=== PATIENT | female | born 1990 | race Caucasian/White ===

== ENCOUNTER 2018-12-08 10:49 | Emergency (ER) | payer SELFPAY ==
[~2018-12-08] VITALS: Ht 149.9 cm; Wt 63.6 kg
[2018-12-08 10:56] VITALS: Ht 149.9 cm; Wt 63.6 kg
[2018-12-08] MEDS ORDERED: ALBUTEROL SULF8.5 GM INH (10:59)
[2018-12-08 12:30] LABS: BASOPHILS 0.2 % (0-2); EOSINOPHILS 2.5 % (0-7); HEMATOCRIT 40.6 % (36.0-48.0); HEMOGLOBIN 13.9 g/dL (12-16); IMMATURE GRANULOCYTES 0.2 % (0-5); LYMPHOCYTES 24.7 % (15-50); MCH 29.7 pg (26.0-34.0); MCHC 34.2 g/dL (31.0-37.0); MCV 86.8 fL (80.0-100.0); MEAN PLATELET VOLUME 12.1 fL (7.4-10.4); MONOCYTES 6.7 % (2-11); NEUTROPHILS 65.7 % (40-80); PLATELET COUNT 234 10x3/uL (130-400); RBC 4.68 10x6/uL (4.00-5.40); RDW 12.4 % (11.5-14.5); WBC 10.3 10x3/uL (4.8-10.8)
[2018-12-08 12:55] LABS: ALBUMIN 3.9 g/dL (3.4-5.0); ANION GAP 12.8 mmol/L (8-16); BILIRUBIN - TOTAL 0.63 mg/dL (0.2-1.3); CALCIUM 8.9 mg/dL (8.5-10.1); CARBON DIOXIDE 28.1 mmol/L (21.0-32.0); POTASSIUM - SERUM 3.9 mmol/L (3.5-5.1)
[2018-12-08 12:57] LABS: APPEARANCE HAZY (CLEAR); COLOR YELLOW (YELLOW); GLUCOSE NEGATIVE (NEGATIVE); NITRITE NEGATIVE (NEGATIVE); PROTEIN 3+ mg/dL (NEGATIVE); SPECIFIC GRAVITY 1.015 (1.005-1.020)
[2018-12-08 12:58] LABS: BACTERIA MANY /hpf (NONE SEEN); BILIRUBIN NEGATIVE (NEGATIVE); EPITHELIAL CELLS 0-5 /hpf (0-5); KETONE NEGATIVE (NEGATIVE); MUCUS <1+ /lpf (NONE SEEN); WHITE CELLS - URINE OCC /hpf (0-5)
[2018-12-08] MEDS ORDERED: TORADOL10 MG PO (13:53)
[2018-12-08] MEDS ORDERED: ZOFRAN ODT4 MG/UDTAB PO (13:53)
[2018-12-08] MEDS ORDERED: ULTRAM50 MG PO (13:56)
[2018-12-08 14:19] VITALS: BP 126/60
== END 2018-12-08 14:23 | disposition home or self-care (01) ==
LOC: D.ER 10:49
PROVIDERS: Family Medicine
DX: N20.0 Calculus of kidney (principal); N23 Unspecified renal colic

== ENCOUNTER 2019-05-13 09:24 | Inpatient (IN) | payer MEDICAID ==
[~2019-05-13] VITALS: Ht 149.9 cm; Wt 63.5 kg
[~2019-05-13 09:24] MED LIST: ALBUTEROL SULF8.5 GM INH; TORADOL10 MG PO; ULTRAM50 MG PO; ZOFRAN ODT4 MG/UDTAB PO
[2019-05-13 09:51] LABS: BASOPHILS 0.1 % (0-2); EOSINOPHILS 0.2 % (0-7); HEMATOCRIT 38.3 % (36.0-48.0); IMMATURE GRANULOCYTES 0.4 % (0-5); LYMPHOCYTES 10.4 % (15-50); MCH 29.3 pg (26.0-34.0); MCHC 33.9 g/dL (31.0-37.0); MCV 86.3 fL (80.0-100.0); MEAN PLATELET VOLUME 11.9 fL (7.4-10.4); MONOCYTES 5.2 % (2-11); NEUTROPHILS 83.7 % (40-80); PLATELET COUNT 226 10x3/uL (130-400); RBC 4.44 10x6/uL (4.00-5.40); RDW 13.1 % (11.5-14.5); WBC 14.1 10x3/uL (4.8-10.8)
[2019-05-13 09:59] LABS: HCG URINE NEGATIVE (NEGATIVE)
[2019-05-13 10:02] LABS: ALBUMIN 3.8 g/dL (3.4-5.0); ALKALINE PHOSPHATASE 83 U/L (46-116); ALT (SGPT) 19 U/L (10-68); BILIRUBIN - TOTAL 0.51 mg/dL (0.2-1.3); CALC OSMOLALITY 270 mosm/kg (275-300); CARBON DIOXIDE 27.4 mmol/L (21.0-32.0); CHLORIDE - SERUM 100 mmol/L (98-107); CREATININE - SERUM 0.8 mg/dL (0.6-1.3); GLUCOSE 97 mg/dL (74-106); POTASSIUM - SERUM 3.6 mmol/L (3.5-5.1); PROTEIN - SERUM 7.8 g/dL (6.4-8.2); SODIUM 137 mmol/L (136-145); UREA NITROGEN 5 mg/dL (7-18); eGFR NON AFRICAN AMERICAN 90 mL/min (90-120)
[2019-05-13 10:04] LABS: AMYLASE - SERUM 18 U/L (25-115); LIPASE 74 U/L (73-393)
[2019-05-13 10:05] LABS: TROPONIN-I < 0.017 ng/mL (0.000-0.060)
[2019-05-13 10:36] LABS: APPEARANCE CLEAR (CLEAR); BILIRUBIN NEGATIVE (NEGATIVE); COLOR STRAW (YELLOW); GLUCOSE NEGATIVE (NEGATIVE); KETONE NEGATIVE (NEGATIVE); NITRITE NEGATIVE (NEGATIVE); PROTEIN NEGATIVE (NEGATIVE); SPECIFIC GRAVITY 1.005 (1.005-1.020); UROBILINOGEN NORMAL (NORMAL)
--- NOTE | 2019-05-13 13:37 | NUR ---
REPORT GIVEN TO BRANDI ON MED III AT 1323.
--- NOTE | 2019-05-13 14:00 | NUR ---
PT RECD FROM ER NURSE. PT AMBULATES FROM STRETCHER TO BED WITHOUT DIFFICULTY. PT REPORTS ABDOMINAL PAIN AT THIS TIME. PT DENIES PRESENCE OF NAUSEA AT THIS TIME. PT ORIENTED TO ROOM. PT AAO X 4. IV ABX INFUSING WITHOUT DIFFICULTY. BED IS IN THE LOWEST POSITION. CALL LIGHT AND BEDSIDE TABLE ARE WITHIN REACH. SIDE RAILS X 2. PT DENIES FURTHER NEEDS. WILL CONT TO MONITOR.
[2019-05-13 14:27] VITALS: BP 104/69; BMI 28.3
[2019-05-13 14:41] VITALS: BP 104/69
--- NOTE | 2019-05-13 16:02 | NUR ---
NO PHONE IN PT ROOM. WORK ORDER PLACED.
--- NOTE | 2019-05-13 16:03 | NUR ---
PT REQUESTING PAIN MEDICATION AND REPORTS THAT MORPHINE MAKES HER "THROW UP" PHONE CALL PLACED TO DR FENTON TO NOTIFY AND REQUEST ALTERNATE PAIN MEDICATION.
--- NOTE | 2019-05-13 16:25 | NUR ---
TELEPHONE ORDERS RECD FROM DR FENTON FOR PAIN MEDICATION IS DILAUDID 0.5MG Q2H PRN. WILL PLACE ORDER.
--- NOTE | 2019-05-13 18:56 | NUR ---
PATIENT RESTING IN BED AND DENIES NEEDS AT THIS TIME. BED IN LOWEST POSITION AND CALL LIGHT WITHIN REACH. ENCOURAGED THE PATIENT TO CALL IF SHE HAS NEEDS. WILL CONTINUE TO MONITOR.
[2019-05-13 20:00] VITALS: BP 107/70
--- NOTE | 2019-05-13 20:57 | NUR ---
FRANDY CHUNG IN REGARDS TO PATIENT'S REQUEST FOR A DIFFERENT PAIN MEDICATION
--- NOTE | 2019-05-13 22:24 | NUR ---
PATIENT RESTING IN BED WITH EYES CLOSED AND NO S/S OF DISTRESS. WILL CONTINUE TO MONITOR.
[2019-05-13 23:52] VITALS: BP 89/56
[2019-05-14 04:00] VITALS: BP 91/61
[2019-05-14 05:39] LABS: BASOPHILS 0.2 % (0-2); EOSINOPHILS 0.7 % (0-7); HEMATOCRIT 34.6 % (36.0-48.0); HEMOGLOBIN 11.6 g/dL (12-16); IMMATURE GRANULOCYTES 0.2 % (0-5); LYMPHOCYTES 17.3 % (15-50); MCHC 33.5 g/dL (31.0-37.0); MCV 86.5 fL (80.0-100.0); MEAN PLATELET VOLUME 12.2 fL (7.4-10.4); MONOCYTES 7.7 % (2-11); NEUTROPHILS 73.9 % (40-80); PLATELET COUNT 196 10x3/uL (130-400); RDW 13.3 % (11.5-14.5)
[2019-05-14 05:50] LABS: WBC 9.9 10x3/uL (4.8-10.8)
[2019-05-14 06:20] LABS: ALBUMIN 2.9 g/dL (3.4-5.0); ALKALINE PHOSPHATASE 71 U/L (46-116); ALT (SGPT) 16 U/L (10-68); BILIRUBIN - TOTAL 0.37 mg/dL (0.2-1.3); CALC OSMOLALITY 276 mosm/kg (275-300); CALCIUM 8.2 mg/dL (8.5-10.1); CARBON DIOXIDE 27.8 mmol/L (21.0-32.0); CHLORIDE - SERUM 104 mmol/L (98-107); CREATININE - SERUM 0.7 mg/dL (0.6-1.3); GLUCOSE 86 mg/dL (74-106); POTASSIUM - SERUM 3.2 mmol/L (3.5-5.1); PROTEIN - SERUM 6.3 g/dL (6.4-8.2); SODIUM 141 mmol/L (136-145); eGFR NON AFRICAN AMERICAN > 90 mL/min (90-120)
[2019-05-14 06:21] LABS: UREA NITROGEN 3 mg/dL (7-18)
--- NOTE | 2019-05-14 07:10 | NUR ---
REPORT RECIEVED AND PATIENT CARE ASSUMED. PATIENT LAYING IN BED ON BACK AWAKE, ALERT AND ORIENTED X 4. PATIENT DENIES ANY PAIN OR NAUSEA. PATIENT IS STABLE AND VSS. WILL CONTINUE WITH PLAN OF CARE. SR UP X 2 BED IN LOW POSITION AND CALL LIGHT IN REACH.
--- NOTE | 2019-05-14 08:30 | HP ---
PATIENT: VERENICE ALLEN MEDICAL RECORD: [id number] ACCOUNT: [id number] LOCATION:[address] : [birth year] ADMISSION DATE: 05/13/19 PCP: No PCP HISTORY AND PHYSICAL EXAMINATION DATE OF ADMISSION: 05/13/2019 CHIEF COMPLAINT: Abdominal pain, nausea, vomiting and diarrhea since last night. HISTORY OF PRESENT ILLNESS: This is a 28-year-old white female who has no primary care provider. She lives here in [place] with her mother and her fiance. She presented with above complaints. She denies fever or chills. No significant weakness. Workup in the Emergency Department was significant for an elevated white count of 14,000. A CT of abdomen and pelvis showed mild wall thickening in the ascending colon that could be suggestive of colitis. She also had a nonobstructing left renal calculus with her symptoms and findings on CT and elevated white blood cell count, she is admitted for colitis. PAST MEDICAL HISTORY: She has had asthma. She has a history of renal stones. 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 She has an upcoming appointment and about a week with [facility]. PAST SURGICAL HISTORY: ORIF of right ankle fracture. ALLERGIES: SULFA CAUSES NAUSEA AND ASPIRIN CAUSES NAUSEA. HABITS: She smokes about a half pack of cigarettes a day. Denies alcohol or drug use. SOCIAL HISTORY: She does not work. She lives with her fiance and her mother. FAMILY HISTORY: She really did not know her father much, but she knew that he is and had COPD. Her mother has a history of heart disease, asthma, and has had breast cancer. No diabetes. HOME MEDICATIONS: She uses an albuterol inhaler every once in a while. REVIEW OF SYSTEMS: GENERAL: No major weight changes. HEENT: No particular sinus or allergy problems. RESPIRATORY: She smokes and has a history of asthma. CARDIAC: No history of heart problems. GASTROINTESTINAL: Denies diarrhea, constipation or heartburn. GENITOURINARY: No significant problems there. MUSCULOSKELETAL: No significant problems there. NEUROLOGIC: No migraines or seizures. PSYCHIATRIC: Denies depression or melancholia. PHYSICAL EXAMINATION: VITAL SIGNS: Temperature 98.2, heart rate 95, respirations 18, blood pressure 104/69, O2 sat 98% on room air. GENERAL: She does not appear to be in acute distress. She is awake and alert. HEENT: Grossly within normal limits. NECK: Supple. HISTORY AND PHYSICAL [id number] VERENICE ALLEN HEART: Regular rate and rhythm. LUNGS: Clear. No wheezes. ABDOMEN: With mild diffuse tenderness, more so in the lower abdomen. No guarding, no rebound. No mass. PELVIC: Not done. EXTREMITIES: No edema. LABORATORY DATA: Beta hCG is negative. Urinalysis is negative. CBC with a white count of 14,100, hemoglobin 13, hematocrit 38.3, and 83% PMNs. Basic metabolic panel is normal as are liver functions, amylase and lipase are also normal. CT of abdomen and pelvis shows mild wall thickening of the ascending colon, could be consistent with colitis. There is a nonobstructing left renal calculus. ASSESSMENT: Colitis with abdominal pain, nausea, vomiting, diarrhea. PLAN: She is started on IV Flagyl and Levaquin and will add Lovenox and Pepcid to control her pain and nausea. Other tests or procedures as warranted. TRANSINT:[id number] Voice Confirmation ID: [id number] DOCUMENT ID: [id number] ARBEN FENTON MD at 0830 CC: [id number] DICTATION DATE: 05/13/19 2345 TORTILLA MAKER: 05/14/19 0017 ADM IN [place] [id number] [place] [id number]
[2019-05-14 14:13] VITALS: Ht 149.9 cm; Wt 63.5 kg
--- NOTE | 2019-05-14 14:45 | NUR ---
PATIENT UP AMBULATING ON UNIT. PATIENT STATES THAT SHE FEELS MUCH BETTER. PATIENT IS STABLE AND VSS. WILL CONTINUE TO MONITOR.
--- NOTE | 2019-05-14 18:05 | MORECARE ---
CASE MANAGEMENT DISCHARGE SUMMARY PATIENT: VERENICE ALLEN UNIT: [id number] ADM DATE: 05/13/19 AGE: 28 : [birth year] SEX: F ROOM/BED: D.1203 AUTHOR: WARREN SÁNCHEZ PHYSICIAN: REFERRING PHYSICIAN: ARBEN FENTON MD DATE OF SERVICE: 05/14/19 Discharge Plan Patient Name: VERENICE ALLEN Facility: [facility]:[place] : 1990 Planned Disposition: Home Anticipated Discharge Date: Discharge Date: Expected LOS: Initial Reviewer: [email or web address] Initial Review Date: 05/14/2019 Generated: 05/14/19 7:04 pm Patient Name: VERENICE ALLEN Page 52692 at 1805 All edits/amendments must be made on the electronic document DICTATION DATE: 05/14/191803 INVESTOR: GIANNI 05/14/191803 RPT#: [id number] SD DATE: STATUS: ADM IN [facility] [address] [place] [address] END OF REPORT
--- NOTE | 2019-05-14 18:12 | MORECARE ---
CASE MANAGEMENT DISCHARGE SUMMARY PATIENT: VERENICE ALLEN UNIT: [id number] ADM DATE: 05/13/19 AGE: 28 : [birth year] SEX: F ROOM/BED: D.1203 AUTHOR: GONZALO,DOC PHYSICIAN: REFERRING PHYSICIAN: ARBEN FENTON MD DATE OF SERVICE: 05/14/19 Discharge Plan Patient Name: VERENICE ALLEN Facility: [facility]:[place] : 1990 Planned Disposition: Home Anticipated Discharge Date: Discharge Date: Expected LOS: Initial Reviewer: [email or web address] Initial Review Date: 05/14/2019 Generated: 05/14/19 7:12 pm Comments DCP- Discharge Planning Updated by [email or web address]: Courtney Spencer on 05/14/19 5:[address] Patient Name: VERENICE ALLEN Admission Status: ER Accout number: [id number] Admission Date: 05-13-2019 : 1990 Admission Diagnosis: Attending: ARBEN FENTON Current LOS: 1 Anticipated DC Date: Planned Disposition: Home Primary Insurance: [place] [employer] [facility] Discharge Planning Comments: CM met with patient at bedside after explaining CM role and obtaining verbal consent. Patient lives at home with her boyfriend where she is independent with his care and plans to return there upon discharge. Patient feels this would be a safe discharge. CM discussed availability / needs of home health and medical equipment. Patient denies any discharge needs at this time. Patient states she will have her family drive her home upon discharge. CM will continue to follow and assist as needed with discharge planning / needs. Wet Crown Blocking Operator: Courtney Spencer DCPIA - Discharge Planning Initial Assessment Updated by [email or web address]: Courtney Spencer on 05/14/19 6:04 pm * Is the patient Alert and Oriented? Yes * How many steps to enter\exit or inside your home? * PCP NO PCP * Pharmacy [facility] * Preadmission Environment Home with Family * ADLs Independent * Equipment None * List name and contact numbers for known caregivers / representatives who currently or will assist patient after discharge: TOD ALLEN -MOTHER- [phone] * Verbal permission to speak to the caregivers and representatives has been obtained from the patient. Yes * Community resources currently utilized None * Additional services required to return to the preadmission environment? No * Can the patient safely return to the preadmission environment? Yes * Has this patient been hospitalized within the prior 30 days at any hospital? No Last DP export: 05/14/19 5:05 pm Patient Name: VERENICE ALLEN Page [id number] at 1812 All edits/amendments must be made on the electronic document DICTATION DATE: 05/14/191811 BACK STRIP MACHINE OPERATOR: GIANNI 05/14/191811 RPT#: [id number] DC DATE: STATUS: ADM IN [facility] [address] [place] [address] END OF REPORT
[2019-05-14] MEDS ORDERED: CIPRO500 MG PO (19:09)
[2019-05-14] MEDS ORDERED: FLAGYL500 MG PO (19:10)
--- NOTE | 2019-05-14 20:26 | NUR ---
GIVEN DISCHARGE INSTRUCTIONS TO PT AND PT UNDERSTANDING DC INSTRUCTIONS.PT SIGNED DISCHARGE PAPER AND GO HOME WITH FAMILY MEMBER.
--- NOTE | 2019-05-15 09:12 | MORECARE ---
CASE MANAGEMENT DISCHARGE SUMMARY PATIENT: VERENICE ALLEN UNIT: [id number] ADM DATE: 05/13/19 AGE: 28 : 90 SEX: F ROOM/BED: D.1203 AUTHOR: GONZALO,DOC PHYSICIAN: REFERRING PHYSICIAN: ARBEN FENTON MD DATE OF SERVICE: 05/15/19 Discharge Plan Patient Name: VERENICE ALLEN Facility: [facility]:[place] : 1990 Planned Disposition: Home Anticipated Discharge Date: Discharge Date: 05/14/2019 Expected LOS: Initial Reviewer: [email or web address] Initial Review Date: 05/14/2019 Generated: 05/15/19 10:12 am Comments DCP- Discharge Planning Updated by [email or web address]: Courtney Spencer on 05/14/19 5:[address] Patient Name: VERENICE ALLEN Admission Status: ER Accout number: [id number] Admission Date: 05-13-2019 : 1990 Admission Diagnosis: Attending: ARBEN FENTON Current LOS: 1 Anticipated DC Date: Planned Disposition: Home Primary Insurance: [place] [employer] [facility] Discharge Planning Comments: CM met with patient at bedside after explaining CM role and obtaining verbal consent. Patient lives at home with her boyfriend where she is independent with his care and plans to return there upon discharge. Patient feels this would be a safe discharge. CM discussed availability / needs of home health and medical equipment. Patient denies any discharge needs at this time. Patient states she will have her family drive her home upon discharge. CM will continue to follow and assist as needed with discharge planning / needs. Steam Finisher: Courtney Spencer DCPIA - Discharge Planning Initial Assessment Updated by [email or web address]: Courtney Spencer on 05/14/19 6:04 pm * Is the patient Alert and Oriented? Yes * How many steps to enter\exit or inside your home? * PCP NO PCP * Pharmacy [facility] * Preadmission Environment Home with Family * ADLs Independent * Equipment None * List name and contact numbers for known caregivers / representatives who currently or will assist patient after discharge: TOD ALLEN -MOTHER- [phone] * Verbal permission to speak to the caregivers and representatives has been obtained from the patient. Yes * Community resources currently utilized None * Additional services required to return to the preadmission environment? No * Can the patient safely return to the preadmission environment? Yes * Has this patient been hospitalized within the prior 30 days at any hospital? No Last DP export: 05/14/19 5:12 pm Patient Name: VERENICE ALLEN Page 90080 at 0912 All edits/amendments must be made on the electronic document DICTATION DATE: 05/15/19911 TELEVISION AGENT: GIANNI 05/15/19911 RPT#: [id number] DC DATE:05/14/19 STATUS: DIS IN [facility] [address] [place] [address] END OF REPORT
== END 2019-05-14 20:23 | disposition home or self-care (01) | DRG 392 ==
LOC: D.ER 09:24 → D.M3 12:38
PROVIDERS: Family Medicine; ADMIT Family Medicine; ATTEND Family Medicine
DX: K52.9 Noninfective gastroenteritis and colitis, unspecified (principal); F17.210 Nicotine dependence, cigarettes, uncomplicated